=== PATIENT | female | born 1940 | race Caucasian/White ===

== ENCOUNTER → 2020-12-13 | Emergency (ER) | payer OTHER ==
[~2020-12-13] VITALS: Ht 165.1 cm; Wt 67.6 kg
[~2020-12-13] MED LIST: CYCLOBENZAPRINE10 MG PO; NORFLEX100MG PO; TYLENOL ARTHRI650 MG PO; ULTRACET PO
== END | disposition home or self-care (01) ==
LOC: ER 16:20
DX: S30.0XXA Contusion of lower back and pelvis, initial encounter (principal); W18.39XA Other fall on same level, initial encounter; Y93.89 Activity, other specified; Y92.89 Other specified places as the place of occurrence of the external cause; Y99.8 Other external cause status